=== PATIENT | female | born 1990 | race Caucasian/White ===

== ENCOUNTER 2021-06-18 12:54 | Emergency (ER) | payer BC ==
[2021-06-18] MEDS ORDERED: LORAZEPAM 0.5 MG TABLET ONE (14:01)
[2021-06-18] MEDS ORDERED: FAMOTIDINE 20 MG TAB ONE (14:01)
[2021-06-18] MEDS ORDERED: DIPHENHYDRAMINE 25 MG TAB/CAP ONE (14:01)
[2021-06-18 16:17] LABS: Protime INR 1.05
[2021-06-18 16:20] LABS: Hematocrit 40.7 % (36.0-45.0); Lymphocytes % 32.9 % (15.3-44.8); MPV 6.9 fL (7.6-11.3); RBC Red Blood Cell Count 4.54 M/uL (3.86-4.86)
[2021-06-18 16:31] LABS: ALT/SGPT 55 U/L (12-78); AST/SGOT 23 U/L (15-37); Albumin 4.2 g/dL (3.4-5.0); Alkaline Phosphatase 58 U/L (45-117); BUN Blood Urea Nitrogen 8 mg/dL (7-18); Bicarbonate 26 mmol/L (21-32); Bilirubin Direct 0.2 mg/dL (0-0.2); Bilirubin Total 0.7 mg/dL (0.2-1.0); Glucose Level 87 mg/dL (74-106); Magnesium 2.2 mg/dL (1.8-2.4); NT PRO-BNP 13 pg/mL (<125); Potassium 4.1 mmol/L (3.5-5.1); Protein, Total 8.6 g/dL (6.4-8.2); Sodium Level 139 mmol/L (136-145)
--- NOTE | 2021-06-18 17:48 | ER ---
Nurse's Notes [facility] Name: Suzanne Alcantar Age: 31 yrs Sex: Female : 1990 Arrival Date: 06/18/2021 Time: 12:56 Bed 17 Private MD: Diagnosis: Syncope Near Presentation: 06/18 13:08 Chief complaint: Patient states: Sudden onset of dizziness, near syncope feeling, SOB, ll1 and head heaviness while working today at [employer]. No fever or cough. On cephalexin for ingrown toenail that was removed. Coronavirus screen: Vaccine status: Patient reports being unvaccinated. Client denies travel out of the [place] in the last 14 days. At this time, the client does not indicate any symptoms associated with coronavirus-19. Ebola Screen: Patient denies travel to an Ebola-affected area in the 21 days before illness onset. Onset: The symptoms/episode began/occurred suddenly. Anaphylaxis evaluation, no signs or symptoms of anaphylaxis were noted. Initial Sepsis Screen: Does the patient meet any 2 criteria? No. Patient's initial sepsis screen is negative. Does the patient have a suspected source of infection? No. Patient's initial sepsis screen is negative. Risk Assessment: Do you want to hurt yourself or someone else? Patient reports no desire to harm self or others. Onset of symptoms was June 18, 2021. 13:08 Method Of Arrival: Ambulatory ll1 13:08 Acuity: JENNYFER 3 ll1 Triage Assessment: 13:05 General: Appears uncomfortable, Behavior is cooperative, appropriate for age, crying. ll1 Pain: Denies pain. Neuro: Level of Consciousness is awake, alert, obeys commands, Oriented to person, place, time, situation, Appropriate for age General Inspector are equal bilaterally Moves all extremities. Full function Reports dizziness, headache a syncopal episode. Cardiovascular: No deficits noted. Respiratory: Reports shortness of breath. 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 - Social history:: Smoking status: Patient denies any tobacco usage or history of. Screenin:11 Abuse screen: Denies threats or abuse. Nutritional screening: No deficits noted. lr4 Tuberculosis screening: No symptoms or risk factors identified. Fall Risk None identified. Assessment: 13:10 General: Appears in no apparent distress. comfortable, Behavior is calm, cooperative. lr4 Pain: Denies pain. Neuro: No deficits noted. Neuro: Reports dizziness, since 1 hr ago. Cardiovascular: No deficits noted. Respiratory: No deficits noted. Respiratory: Airway is patent Respiratory effort is even, unlabored, Breath sounds are clear bilaterally. Vital Signs: 13:08 BP 140 / 97; Pulse 99; Resp 18; Pulse Ox 100% on R/A; lr4 13:08 Temp 97.9; Weight 110.22 kg; Height 5 ft. 6 in. (167.64 cm); Pain 0/10; ll1 14:30 BP 133 / 85; Pulse 90; Resp 15; Pulse Ox 98% ; Pain 0/10; eo2 16:09 BP 125 / 64; Pulse 86; Resp 17; Pulse Ox 98% ; Pain 0/10; eo2 17:00 BP 114 / 77; Pulse 89; Resp 16; Pulse Ox 99% ; Pain 0/10; eo2 18:06 BP 121 / 77; Pulse 91; Resp 17; Pulse Ox 99% ; Pain 0/10; eo2 13:08 Body Mass Index 39.22 (110.22 kg, 167.64 cm) ll1 ED Course: 12:56 Patient arrived in ED. ds1 12:58 Dakota Cevallos MD is Attending Physician. jr11 13:00 Arm band placed on Patient placed in an exam room, on a stretcher. ll1 13:10 Fran Heath PA is PHCP. [facility] 13:10 Triage completed. ll1 13:12 Patient has correct armband on for positive identification. Bed in low position. Call lr4 light in reach. Verbal reassurance given. 13:18 Cheli Lance, TERRY is Primary Nurse. eo2 13:19 No provider procedures requiring assistance completed. eo2 16:00 quality assurance monitor on. Pulse ox on. NIBP on. eo2 16:31 Basic Metabolic Panel Sent. eo2 18:06 IV discontinued, intact. eo2 Administered Medications: 14:04 Drug: diphenhydrAMINE 25 mg Route: PO; eo2 16:08 Follow up: Response: No adverse reaction eo2 14:04 Drug: Pepcid (famotidine) 20 mg Route: PO; eo2 15:10 Follow up: Response: No adverse reaction eo2 14:05 Drug: Ativan (LORazepam) 0.5 mg Route: PO; eo2 16:08 Follow up: Response: No adverse reaction eo2 Outcome: 17:48 Discharge ordered by MD. hurley 18:06 Discharged to home ambulatory. eo2 18:06 Discharged to home with family. 18:06 Condition: stable 18:06 Condition: stable 18:06 Discharge instructions given to patient, Instructed on discharge instructions, follow up and referral plans. Demonstrated understanding of instructions, follow-up care. 18:07 Patient left the ED. eo2 Signatures: Fran Heath PA PA jmm Sanford, Demi ds1 Mikaela Solano RN RN ll1 hCeli Lance RN RN eo2 Dakota Cevallos MD MD jr11 Nhung Pritchard RN RN lr4
--- NOTE | 2021-06-18 17:48 | EDPHYS ---
Physician Documentation [facility] Name: Suzanne Alcantar Age: 31 yrs Sex: Female : 1990 Arrival Date: 06/18/2021 Time: 12:56 Bed 17 Private MD: ED Physician Dakota Cevallos HPI: 06/18 13:23 This 31 yrs old Female presents to ER via Ambulatory with complaints of Allergic jmm Reaction. 13:23 The patient has experienced near-syncope. Onset: The symptoms/episode began/occurred jmm acutely, just prior to arrival. Duration: This was a single episode. Context: occurred at work, occurred while the patient was. This is a 31-year-old female no chronic conditions presents emerge department with complaints of near syncope which occurred while at work. Patient states that this [id number] standing and looking down the bar codes. Patient states when she changed position at work symptoms exacerbated. Patient states she soon developed shortness of breath and a sensation of swelling in her throat. Patient is concerned that she may have an allergic reaction to cephalexin she was prescribed for for an ingrown toenail. Denies any rash, continues to tolerate secretions. . 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 - Social history:: Smoking status: Patient denies any tobacco usage or history of. ROS: 13:23 Constitutional: Negative for fever, chills, and weight loss, Respiratory: Negative for jmm shortness of breath, cough, wheezing, and pleuritic chest pain. 13:23 Cardiovascular: Positive for chest pain. 13:23 Neuro: Positive for syncope. 13:23 All other systems are negative. Exam: 16:32 ECG was reviewed by the Attending Physician. jmm 16:47 Constitutional: This is a well developed, well nourished patient who is awake, alert, jmm and in no acute distress. Head/Face: atraumatic. Eyes: EOMI, no conjunctival erythema appreciated ENT: Moist Mucus Membranes Neck: Trachea midline, Supple Chest/axilla: Normal chest wall appearance and motion. Cardiovascular: Regular rate and rhythm. No edema appreciated Respiratory: Normal respirations, no respiratory distress appreciated Abdomen/GI: Non distended, soft Back: Normal ROM Skin: General appearance color normal MS/ Extremity: Moves all extremities, no obvious deformities appreciated, no edema noted to the lower extremities Neuro: Awake and alert Psych: Behavior is normal, Mood is normal, Patient is cooperative and pleasant Vital Signs: 13:08 BP 140 / 97; Pulse 99; Resp 18; Pulse Ox 100% on R/A; lr4 13:08 Temp 97.9; Weight 110.22 kg; Height 5 ft. 6 in. (167.64 cm); Pain 0/10; ll1 14:30 BP 133 / 85; Pulse 90; Resp 15; Pulse Ox 98% ; Pain 0/10; eo2 16:09 BP 125 / 64; Pulse 86; Resp 17; Pulse Ox 98% ; Pain 0/10; eo2 17:00 BP 114 / 77; Pulse 89; Resp 16; Pulse Ox 99% ; Pain 0/10; eo2 18:06 BP 121 / 77; Pulse 91; Resp 17; Pulse Ox 99% ; Pain 0/10; eo2 13:08 Body Mass Index 39.22 (110.22 kg, 167.64 cm) ll1 MDM: 13:23 Patient medically screened. [facility] 16:49 Data reviewed: vital signs, nurses notes. Counseling: I had a detailed discussion with xavi the patient and/or guardian regarding: the historical points, exam findings, and any diagnostic results supporting the discharge/admit diagnosis, lab results, radiology results, the need for outpatient follow up, to return to the emergency department if symptoms worsen or persist or if there are any questions or concerns that arise at home. 06/18 15:28 Order name: Basic Metabolic Panel [facility] 06/18 15:28 Order name: CBC with Diff; Complete Time: 16:23 [facility] 06/18 15:28 Order name: LFT's; Complete Time: 16:32 [facility] 06/18 15:28 Order name: Magnesium; Complete Time: 16:32 [facility] 06/18 15:28 Order name: NT PRO-BNP; Complete Time: 16:32 [facility] 06/18 15:28 Order name: PT-INR; Complete Time: 16:23 [facility] 06/18 15:28 Order name: Troponin HS; Complete Time: 16:32 [facility] 06/18 15:28 Order name: EKG; Complete Time: 15:29 [facility] 06/18 15:28 Order name: Cardiac monitoring; Complete Time: 16:07 [facility] 06/18 15:29 Order name: Basic Metabolic Panel; Complete Time: 16:32 [facility] 06/18 16:39 Order name: D-Dimer; Complete Time: 17:42 [facility] 06/18 15:28 Order name: EKG - Nurse/Tech; Complete Time: 16:07 [facility] 06/18 15:28 Order name: IV Saline Lock; Complete Time: 16:07 [facility] 06/18 15:28 Order name: Labs collected and sent; Complete Time: 16: [facility] 06/18 15:28 Order name: O2 Per Protocol; Complete Time: 16: [facility] 06/18 15:28 Order name: O2 Sat Monitoring; Complete Time: 16:07 [facility] EC:32 Rate is 95 beats/min. Rhythm is regular. QRS [place] is Normal. [place] interval is normal. QRS jmm interval is normal. QT interval is normal. No Q waves. T waves are Normal. No ST changes noted. Reviewed by me. Administered Medications: 14:04 Drug: diphenhydrAMINE 25 mg Route: PO; eo2 16:08 Follow up: Response: No adverse reaction eo2 14:04 Drug: Pepcid (famotidine) 20 mg Route: PO; eo2 15:10 Follow up: Response: No adverse reaction eo2 14:05 Drug: Ativan (LORazepam) 0.5 mg Route: PO; eo2 16:08 Follow up: Response: No adverse reaction eo2 Disposition: 06/19 09:42 Co-signature as Attending Physician, Dakota Cevallos MD I agree with the assessment and [facility] plan of care. Disposition Summary: 06/18/21 17:48 Discharge Ordered Location: Home [facility] Condition: Stable [facility] Diagnosis - Syncope Near jmm Followup: jmm - With: Private Physician - When: 2 - 3 days - Reason: Recheck today's complaints, Continuance of care, Re-evaluation by your physician Discharge Instructions: - Discharge Summary Sheet [facility] - Near-Syncope [facility] Forms: - Medication Reconciliation Form [facility] - Thank You Letter jmm - Antibiotic Education jmm - Work release form jmm - Prescription Opioid Use jm Signatures: Dispatcher [employer] Fran Jimenez PA PA jmm Lewis, Lynsay, RN RN ll1 Cheli Lance RN RN eo2 Dakota Cevallos MD MD jr11
[2021-06-18 19:00] VITALS: O2SAT 98
[2021-06-18 19:02] VITALS: BP 125/64
[2021-06-18 19:09] VITALS: TEMP 97.9
== END 2021-06-18 18:07 | disposition home or self-care (01) ==
LOC: ER 12:54
DX: R55 Syncope and collapse (principal)
CPT/HCPCS: 36415; 80048; 80076; 83735; 83880; 84484; 85025; 85379; 85610; 93005; 99284

== ENCOUNTER 2022-01-04 13:02 | Emergency (ER) | payer BC, OTHER ==
[2022-01-04 16:41] LABS: Urine Blood Trace-intact (Negative); Urine Glucose Negative (Negative); Urine Protein 1+ (Negative)
[2022-01-04 16:47] LABS: Absolute Lymphocytes (CBC) 1.7 K/uL (0.7-4.9); Hematocrit 29.2 % (36.0-45.0); Lymphocytes % 12.3 % (15.3-44.8); MCV 89.5 fL (80-100); MPV 6.6 fL (7.6-11.3); RBC Red Blood Cell Count 3.26 M/uL (3.86-4.86)
[2022-01-04] MEDS ORDERED: NA CHLORIDE 0.9% 1,000 ML ONE (16:52)
[2022-01-04 17:10] LABS: Potassium 3.4 mmol/L (3.5-5.1)
[2022-01-04 17:37] LABS: Urine Mucus Slight /HPF (None Seen); Urine RBC <5 /HPF (None Seen)
--- NOTE | 2022-01-04 18:42 | RAD REPORT ---
EXAM DESCRIPTION: CTAbdomen Pelvis W Contrast - 01/04/2022 6:33 pm CLINICAL HISTORY: Abdominal pain. fever, pain, postop COMPARISON: No comparisons TECHNIQUE: Biphasic CT imaging of the abdomen and pelvis was performed with 100 ml non-ionic IV cont rast. All CT scans are performed using dose optimization technique as appropriate and may include automated exposure control or mA/KV adjustment according to patient size. FINDINGS: The lung bases are clear. The liver, spleen, pancreas, adrenal glands and kidneys are within normal limits. There is inflammatory changes seen in the intrapelvic fat, presacral fat as well as the skin and subc utaneous fat of the lower pelvis. No well-formed abscess collection seen. Small amount of free fluid is seen in the pelvis. No bowel obstruction. No free air seen. Normal appendix. No evidence of signi ficant lymphadenopathy. No suspicious bony findings. IMPRESSION: Moderate inflammatory changes are seen in the intrapelvic fat, presacral fat as well as the skin and subcutaneous fat of the inferior pelvis extending to the vaginal region. This could be r elated to infection. No abscess collection is present.
--- NOTE | 2022-01-04 19:24 | ER ---
Nurse's Notes [facility] Name: Suzanne Alcantar Age: 31 yrs Sex: Female : 1990 Arrival Date: 01/04/2022 Time: 13:07 Bed 27 Private MD: Jayme Sanabria Diagnosis: Post surgical inflammation;Suprapubic pain Presentation: 01/04 13:31 Chief complaint: Patient states: "Dr. Sanabria wanted me to come here because I am having ss a fever and and pain/ swelling to my lower abd and vaginal area. I had surgery for an ectopic on Saturday in [facility].". Coronavirus screen: Client denies travel out of the [place] in the last 14 days. Ebola Screen: Patient denies exposure to infectious person. Patient denies travel to an Ebola-affected area in the 21 days before illness onset. Initial Sepsis Screen: Does the patient meet any 2 criteria? HR > 90 bpm. Does the patient have a suspected source of infection? No. Patient's initial sepsis screen is negative. Risk Assessment: Do you want to hurt yourself or someone else? Patient reports no desire to harm self or others. Onset of symptoms was January 04, 2022. 13:31 Method Of Arrival: Ambulatory ss 13:31 Acuity: JENNYFER 3 ss Triage Assessment: 13:34 General: Appears in no apparent distress. obese, well groomed, Behavior is calm, ss cooperative, appropriate for age. Pain: Complains of pain in suprapubic area, right lower quadrant and left lower quadrant. GI: Reports diarrhea, Patient currently denies nausea, vomiting. : Reports vaginal pain. 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 - Social history:: Smoking status: Patient denies any tobacco usage or history of. Screenin:49 Abuse screen: Denies threats or abuse. Nutritional screening: No deficits noted. ll1 Tuberculosis screening: No symptoms or risk factors identified. Fall Risk IV access (20 points). Total Andre Fall Scale indicates No Risk (0-24 pts). Assessment: 15:45 Reassessment: No changes from previously documented assessment. Patient and/or family ll1 updated on plan of care and expected duration. Pain level reassessed. Patient is alert, oriented x 3, equal unlabored respirations, skin warm/dry/pink. 16:45 Reassessment: No changes from previously documented assessment. Patient and/or family ll1 updated on plan of care and expected duration. Pain level reassessed. Patient is alert, oriented x 3, equal unlabored respirations, skin warm/dry/pink. 17:45 Reassessment: No changes from previously documented assessment. Patient and/or family ll1 updated on plan of care and expected duration. Pain level reassessed. Vital Signs: 13:31 BP 116 / 67; Pulse 124; Resp 17; Temp 98.8(O); Pulse Ox 100% on R/A; Weight 107.95 kg; ss Height 5 ft. 6 in. (167.64 cm); Pain 9/10; 18:06 BP 117 / 71; Pulse 103; ll1 13:31 Body Mass Index 38.41 (107.95 kg, 167.64 cm) ED Course: 13:07 Patient arrived in ED. rg4 13:07 Jayme Sanabria MD is Private Physician. rg4 13:33 Triage completed. ss 13:34 Arm band placed on. ss 15:37 Lauryn Kahn FNP-C is [facility]. kb 15:37 Trino Low MD is Attending Physician. kb 15:46 Mikaela Solano, TERRY is Primary Nurse. ll1 15:46 Patient placed in an exam room, on a stretcher. ll1 16:49 Inserted saline lock: 22 gauge in right antecubital area, using aseptic technique. ll1 Blood collected. 18:09 Patient has correct armband on for positive identification. Bed in low position. Call ll1 light in reach. Side rails up X 1. Cardiac monitoring not applicable on this patient. 18:34 CT Abd/Pelvis - IV Contrast Only In Process Unspecified. EDMS 19:37 No provider procedures requiring assistance completed. IV discontinued, intact, ss bleeding controlled, No redness/swelling at site. Pressure dressing applied. Administered Medications: 16:49 Drug: NS 0.9% 1000 ml Route: IV; Rate: 1000 ml; Site: right antecubital; ll1 18:09 Follow up: Response: No adverse reaction; IV Status: Completed infusion; IV Intake: ll1 1000ml 19:36 Drug: Bactrim (trimethoprim-sulfamethoxazole) (160 mg-800 mg (DS) 1 tablet Route: PO; ss 19:36 Follow up: Response: Medication administered at discharge. ss Medication: 16:50 VIS not applicable for this client. ll1 Intake: 18:09 IV: 1000ml; Total: 1000ml. ll1 Outcome: 19:23 Discharge ordered by . kb 19:37 Discharged to home ambulatory, with family. ss 19:37 Condition: good 19:37 Discharge instructions given to patient, family, Instructed on discharge instructions, follow up and referral plans. medication usage, Demonstrated understanding of instructions, follow-up care, medications. 19:39 Patient left the ED. Signatures: Dispatcher [employer] EDLauryn Cates, DAREK MINAYA-Marie Hubbard RN RN Maryse Solis 4 Mikaela Solano RN RN 1
--- NOTE | 2022-01-04 19:24 | EDPHYS ---
Physician Documentation [facility] Name: Suzanne Alcantar Age: 31 yrs Sex: Female : 1990 Arrival Date: 01/04/2022 Time: 13:07 Bed 27 Private MD: Jayme Sanabria ED Physician Trino Low HPI: 01/04 23:43 This 31 yrs old Female presents to ER via Ambulatory with complaints of Vaginal Pain, kb Vaginal Swelling, Fever. 23:44 the patient presents with a swollen area of the mons pubis. Description: swollen, warm, kb ecchymosis. Onset: The symptoms/episode began/occurred 4 day(s) ago. Possible cause(s): recent surgery. Associated signs and symptoms: Pertinent positives: fever, swelling. Modifying factors: the symptoms are alleviated by nothing, the symptoms are aggravated by pressure. Severity of symptoms: At their worst the symptoms were moderate, in the emergency department the symptoms are unchanged. The patient has not experienced similar symptoms in the past. The patient has been recently seen by a physician:. Patient reports right ectopic was diagnosed on Saturday which resulted in laparoscopic right salpingectomy. Denies abdominal pain today but reports pain to her mons pubis area with swelling and bruising. States she was seen by PCP and told to come to the ER for evaluation. Reports she has had fever. 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 - Social history:: Smoking status: Patient denies any tobacco usage or history of. ROS: 23:38 Respiratory: Negative for shortness of breath, cough, wheezing, and pleuritic chest kb pain. 23:38 Constitutional: Positive for fever. 23:38 Skin: Positive for ecchymosis, swelling, of the mons pubis. 23:38 All other systems are negative. Exam: 23:38 Constitutional: This is a well developed, well nourished patient who is awake, alert, kb and in no acute distress. Head/Face: Normocephalic, atraumatic. ENT: Moist Mucous membranes Cardiovascular: Regular rate and rhythm with a normal S1 and S2. No gallops, murmurs, or rubs. No pulse deficits. Respiratory: Respirations even and unlabored. No increased work of breathing. Talking in full sentences MS/ Extremity: Pulses equal, no cyanosis. Neurovascular intact. Full, normal range of motion. Neuro: Awake and alert, GCS 15, oriented to person, place, time, and situation. Moves all extremities. Normal gait. Psych: Awake, alert, with orientation to person, place and time. Behavior, mood, and affect are within normal limits. 23:38 Abdomen/GI: Inspection: recent surgical incisions noted to umbilicus, right and left lower quadrant that are healing well, Bowel sounds: normal, Palpation: abdomen is soft and non-tender. 23:38 Skin: surgical incision to suprapubic area healing well. Moderate swelling, ecchymosis, tenderness and warmth noted to mons pubis. Vital Signs: 13:31 BP 116 / 67; Pulse 124; Resp 17; Temp 98.8(O); Pulse Ox 100% on R/A; Weight 107.95 kg; ss Height 5 ft. 6 in. (167.64 cm); Pain 9/10; 18:06 BP 117 / 71; Pulse 103; ll1 13:31 Body Mass Index 38.41 (107.95 kg, 167.64 cm) ss MDM: 15:37 Patient medically screened. kb 23:38 Data reviewed: vital signs, nurses notes. Data interpreted: Pulse oximetry: on room air kb is 100 %. Interpretation: normal. Counseling: I had a detailed discussion with the patient and/or guardian regarding: the historical points, exam findings, and any diagnostic results supporting the discharge/admit diagnosis, lab results, radiology results, the need for outpatient follow up, a family practitioner, an OB/Gyne specialist, to return to the emergency department if symptoms worsen or persist or if there are any questions or concerns that arise at home. 01/04 16:12 Order name: CBC with Diff; Complete Time: 17:08 kb 01/04 16:12 Order name: Basic Metabolic Panel; Complete Time: 17:11 kb 01/04 16:12 Order name: Urine Microscopic Only; Complete Time: 17:39 kb 01/04 16:41 Order name: Urine Dipstick-Ancillary; Complete Time: 17:08 EDMS 01/04 16:44 Order name: Urine --Ancillary (enter results); Complete Time: 18:13 eb 01/04 17:09 Order name: Blood Culture Adult (2) kb 01/04 16:12 Order name: IV Start; Complete Time: 16:13 kb 01/04 16:12 Order name: Urine Dipstick-Ancillary (obtain specimen); Complete Time: 16:33 kb 01/04 16:12 Order name: CT Abd/Pelvis - IV Contrast Only; Complete Time: 18:49 kb 01/04 17:09 Order name: Lactate; Complete Time: 17:47 kb Administered Medications: 16:49 Drug: NS 0.9% 1000 ml Route: IV; Rate: 1000 ml; Site: right antecubital; ll1 18:09 Follow up: Response: No adverse reaction; IV Status: Completed infusion; IV Intake: ll1 1000ml 19:36 Drug: Bactrim (trimethoprim-sulfamethoxazole) (160 mg-800 mg (DS) 1 tablet Route: PO; ss 19:36 Follow up: Response: Medication administered at discharge. ss Disposition Summary: 01/04/22 19:23 Discharge Ordered Location: Home kb Condition: Stable kb Diagnosis - Post surgical inflammation kb - Suprapubic pain kb Followup: kb - With: Emergency Department - When: As needed - Reason: Worsening of condition Followup: kb - With: Private Physician - When: 2 - 3 days - Reason: Recheck today's complaints, Continuance of care, Re-evaluation by your physician Discharge Instructions: - Discharge Summary Sheet kb - Abdominal Pain, Adult, [id number] kb Forms: - Medication Reconciliation Form kb - Thank You Letter kb - Antibiotic Education kb - Prescription Opioid Use kb Prescriptions: - Bactrim DS 800-160 mg Oral Tablet - take 1 tablet by ORAL route every 12 hours for 10 days; 20 tablet; Refills: 0, kb Product Selection Permitted Signatures: Dispatcher [employer] Lauryn Scott FNP-C FNP-Ckb Smirch, Shelby, RN RN ss Mikaela Solano RN RN ll1
[2022-01-04] MEDS ORDERED: SMZ./TMP. 800/160 MG TABLET ONE (19:33)
[2022-01-06 02:20] VITALS: TEMP 98.8; O2SAT 100
[2022-01-06 02:22] VITALS: BP 117/71
== END 2022-01-04 19:39 | disposition home or self-care (01) ==
LOC: ER 13:02
DX: G89.18 Other acute postprocedural pain (principal); R10.30 Lower abdominal pain, unspecified; Z98.890 Other specified postprocedural states
CPT/HCPCS: 87040; 85025; 80048; 36415; 81025; 83605; 74177; 96360; 99284; Q9967; J7030; 81003; 81015